=== PATIENT | female | born 1935 | race Caucasian/White ===

== ENCOUNTER 2017-01-19 23:06 | Emergency (ER) | payer MEDICARE ==
[~2017-01-19] VITALS: Ht 157.5 cm; Wt 54.0 kg
[2017-01-19] MEDS ORDERED: BALSALAZIDE750 MG PO (23:24)
[2017-01-19] MEDS ORDERED: LISINOPRIL10 MG PO (23:25)
[2017-01-19] MEDS ORDERED: TRILEPTAL150 MG PO (23:25)
[2017-01-19 23:44] LABS: ACT PARTIAL THROMBO TIME 28.7 SECONDS (20.0-32.5); ALBUMIN 4.3 g/dL (3.2-5.0); ALKALINE PHOSPHATASE 73 u/l (38-126); ANION GAP 13 (6-22 (CALC)); BILIRUBIN, TOTAL 0.7 mg/dL (0.0-1.4); BUN 19 mg/dL (8-23); BUN/CREATININE RATIO 38 (12-20 (CALC)); CALCIUM 8.9 mg/dL (8.4-10.2); CARBON DIOXIDE 27 mmol/l (22-30); CHLORIDE 90 mmol/l (95-108); CREATININE 0.5 mg/dL (0.5-1.0); GFR > 60 ML/MIN (>=60 (CALC)); GFR FOR AFR.AMER. > 60 ML/MIN (>=60 (CALC)); GLUCOSE 119 mg/dL (82-115); PROTHROMBIN TIME 11.1 SECONDS (9.0-12.5); SGOT/AST 30 u/l (9-36); SGPT/ALT 27 u/l (11-66); SODIUM 126 mmol/l (137-146); TOTAL PROTEIN 7.2 g/dL (6.3-8.2)
[2017-01-19 23:48] LABS: HEMATOCRIT 34.3 % (37.0-47.0); HEMOGLOBIN 11.6 g/dl (12.0-16.0); IMMATURE GRANULOCYTES 0.4 % (0.0-1.0); MEAN CELL VOLUME 83.9 fL CALC (80.0-100.0); MEAN CORPUSCULAR HGB 28.4 pG CALC (26.0-32.0); MEAN CORPUSCULAR HGB CONC 33.8 g/L CALC (32.0-36.0); NEUT# 5.01 thou/uL (2.00-7.15); RED BLOOD COUNT 4.09 mill/uL (4.20-5.60); RED CELL DISTRI WIDTH 14.9 % (11.5-15.5)
[2017-01-19 23:56] LABS: MYOGLOBIN 38 ng/mL (0 - 62)
[2017-01-20 00:35] VITALS: BP 160/75
== END 2017-01-20 00:35 | disposition short-term general hospital (02) ==
LOC: ED 23:06
PROVIDERS: Emergency Medicine
DX: R00.1 Bradycardia, unspecified (principal); E87.1 Hypo-osmolality and hyponatremia